=== PATIENT | female | born 1985 | race Two or more races ===

== ENCOUNTER 2018-02-12 14:29 | Emergency (ER) | payer OTHER ==
[~2018-02-12] VITALS: Ht 152.4 cm; Wt 43.1 kg
[2018-02-12 14:38] VITALS: BP 106/73
== END 2018-02-12 16:02 | disposition home or self-care (01) ==
LOC: ER 14:36
DX: R51 Headache (principal); A18.4 Tuberculosis of skin and subcutaneous tissue; F17.200 Nicotine dependence, unspecified, uncomplicated; F12.10 Cannabis abuse, uncomplicated
CPT/HCPCS: 71045-TC; A4606; Z7610